=== PATIENT | female | born 1975 | race Caucasian/White ===

== ENCOUNTER 2016-08-22 18:20 | Emergency (ER) | payer BC ==
[~2016-08-22] VITALS: Ht 157.5 cm; Wt 82.5 kg
[2016-08-22 18:24] VITALS: Ht 157.5 cm; Wt 82.5 kg
[2016-08-22] MEDS ORDERED: ACETAMINOPHEN 500 MG TAB PO STA (18:36)
--- NOTE | 2016-08-22 19:14 | ERD ---
ER Documentation Chief Complaint Date/Time DATE: 08/22/16 TIME: 19:08 Chief Complaint ABDOMINAL PAIN, MILD BLEEDING FOR APPROXIMATELY 1 MONTH, UNSURE IF HPI 41 yo female comes in with mid abdominal pain that is described as burning on and off for a few months vaginal pain on and off for the past month she states she had a positive test a few days ago at home with the urine. She describes burning pain is localized in the periumbilical region, she is also had intermittent bleeding on and off for the last 3-4 weeks lasting for about 3 days. She has not had any fevers or chills, she reports nausea but no vomiting. ROS All systems reviewed and are negative except as per history of present illness. Medications Home Meds Active Scripts Ranitidine Hcl* (Zantac*) 150 Mg Tablet, 150 MG PO DAILY Y for EPIGASTRIC PAIN, #30 TAB Prov:TAMIKA OGDEN PA-C 08/22/16 Allergies Allergies: Coded Allergies: No Known Allergy (Unverified , 08/22/16) PMhx/Soc Medical and Surgical Hx: pt denies Surgical Hx History of Surgery: No Anesthesia Reaction: No Hx Neurological Disorder: No Hx Respiratory Disorders: No Hx Cardiac Disorders: No Hx Psychiatric Problems: No Hx Miscellaneous Medical Probl: Yes (anemia, DM, HLD) Hx Alcohol Use: No Hx Substance Use: No Hx Tobacco Use: No Smoking Status: Never smoker Physical Exam Vitals Vital Signs Date Time Temp Pulse Resp B/P Pulse Ox O2 Delivery O2 Flow Rate FiO2 08/22/16 18:24 98.3 96 17 147/80 100 Physical Exam General: Well-developed, well-nourished. The patient appears in no acute distress. HEENT: Head is normocephalic, atraumatic. No scleral icterus. Neck: Supple. Nontender. Lungs: Clear to auscultation. Normal air movement. Heart: Regular rate and rhythm. S1 and S2 are normal. No murmurs, gallops, or rubs. Abdomen: Soft,nontender, no rebound pain, nondistended. Bowel sounds are normoactive. Extremities: No clubbing or cyanosis. Normal pulses. Moving extremities x 4. No weakness. Neurologic: Alert and oriented 3. No focal deficits. Skin: Normal turgor. No rash or lesions. Result Diagram: 7/04/09 [id number]/[id number] Results 24 hrs Laboratory Tests Test 08/22/16 18:51 08/22/16 19:03 Urine Color YELLOW Urine Clarity SLIGHTLY CLOUDY Urine pH 5.0 Urine Specific [place] 1.023 Urine Ketones TRACEmg/dL Urine Nitrite NEGATIVEmg/dL Urine Bilirubin NEGATIVEmg/dL Urine Urobilinogen NEGATIVEmg/dL Urine Leukocyte Esterase NEGATIVELeu/ul Urine Microscopic RBC 2/HPF Urine Microscopic WBC 1/HPF Urine Squamous Epithelial Cells FEW/HPF Urine Hemoglobin 2+mg/dL Urine Glucose 2+mg/dL Urine Total Protein 1+mg/dl White Blood Count 9.210^3/ul Red Blood Count 4.5810^6/ul Hemoglobin 11.8g/dl Hematocrit 36.9% Mean Corpuscular Volume 80.6fl Mean Corpuscular Hemoglobin 25.8pg Mean Corpuscular Hemoglobin Concent 32.0g/dl Red Cell Distribution Width 14.1% Platelet Count 29879^3/UL Mean Platelet Volume 10.4fl Neutrophils % 55.2% Lymphocytes % 35.2% Monocytes % 7.0% Eosinophils % 2.0% Basophils % 0.3% Nucleated Red Blood Cells % 0.0/100WBC Neutrophils # 5.110^3/ul Lymphocytes # 3.310^3/ul Monocytes # 0.710^3/ul Eosinophils # 0.210^3/ul Basophils # 0.010^3/ul Nucleated Red Blood Cells # 0.010^3/ul Sodium Level 139mmol/L Potassium Level 3.3mmol/L Chloride Level 100mmol/L Carbon Dioxide Level 23mmol/L Anion Gap 19 Blood Urea Nitrogen 12mg/dl Creatinine 0.51mg/dl Glucose Level 129mg/dl Calcium Level 10.0mg/dl Total Bilirubin 0.1mg/dl Direct Bilirubin 0.00mg/dl Indirect Bilirubin 0.1mg/dl Aspartate Amino Transf (AST/SGOT) 16IU/L Alanine Aminotransferase (ALT/SGPT) 23IU/L Alkaline Phosphatase 55IU/L Total Protein 7.7g/dl Albumin 4.6g/dl Globulin 3.10g/dl Albumin/Globulin Ratio 1.48 Lipase 104U/L Beta HCG, Quantitative 99457.0mIU/ml Current Medications Medications (Trade) Dose Ordered Sig/Alessandra Route PRN Reason Start Time Stop Time Status Last Admin Dose Admin Acetaminophen (Tylenol Tab) 500 mg ONCE STAT PO 08/22/16 18:36 08/22/16 18:38 DC 08/22/16 19:11 DIAGNOSTIC IMAGING REPORT Patient: PATTI YAN : 1975 Age: 41 Sex: F MR #: [id number] DOS: 08/22/16 1836 Ordering MD: TAMIKA OGDEN PA-C Location: [facility] Room/Bed: PROCEDURE: US OB. CLINICAL INDICATION: Vaginal bleeding. TECHNIQUE: Multiple sonographic images of the pelvis were obtained. Transabdominal and transvaginal views of the pelvis are available for review. The images were reviewed on a PACS workstation. COMPARISON: No prior studies are available for comparison. FINDINGS: A single live intrauterine is identified. heart rate is 157 beats per minute. The crown-rump length is 16.3 mm which corresponds to 8 weeks and 0 days gestational age by ultrasound criteria. Estimated date of delivery is 04/03/2017 by crown rump length. No subchorionic hemorrhage is identified. The ovaries were not visualized. There is no adnexal mass or free fluid. IMPRESSION: 1. Single live intrauterine gestation of approximately 8 weeks 0 days. 2. No subchorionic hemorrhage. 3. Ovaries not identified. RPTAT: HMVK .Paul Dee MD, MD Date Time Electronically viewed and signed by .Paul Dee MD, MD on 08/22/2016 20:12 .K/ CC: TAMIKA OGDEN PA-C Procedures/MDM 41-year-old female comes in with mid abdominal pain as well as vaginal bleeding with a positive test and comes in with a single live intrauterine of 8 weeks 0 days and ultrasound. Abdominal ultrasound showed a , no evidence of adnexal masses. He has been on and off for several months and described as burning, she will be trialed on ranitidine. Type and Rh is positive, no indication for RhoGam. Urine was negative for infection. She was given copies of ultrasound and mammogram and she is to follow-up with OB in 3-4 days. Departure Diagnosis: Primary Impression: First trimester Additional Impression: Abdominal pain Condition: Good TAMIKA OGDEN PA-C Aug 22, 2016 19:14
[2016-08-22 19:16] LABS: ADD UMIC YES; UR ASCORBIC ACID NEGATIVE (NEGATIVE); UR BILIRUBIN (Dip) NEGATIVE (NEGATIVE); UR BLOOD (Dip) 2+ mg/dL (NEGATIVE); UR CLARITY SLIGHTLY CLOUDY (CLEAR); UR COLOR YELLOW (YELLOW); UR GLUCOSE (Dip) 2+ mg/dL (NEGATIVE); UR KETONES (Dip) TRACE mg/dL (NEGATIVE); UR LEUKOCYTE ESTERASE (Dip) NEGATIVE Leu/ul (NEGATIVE); UR NITRITE (Dip) NEGATIVE (NEGATIVE); UR RBC 2 /HPF (0-5); UR SPECIFIC GRAVITY (Dip) 1.023 (1.003-1.030); UR SQUAMOUS EPITHELIAL CELL FEW /HPF (FEW); UR TOTAL PROTEIN (Dip) 1+ mg/dl (NEGATIVE); UR UROBILINOGEN (Dip) NEGATIVE (NEGATIVE)
[2016-08-22 19:26] LABS: BASOPHILS % 0.3 % (0.0-2.0); EOSINOPHILS # 0.2 10^3/ul (0.0-0.5); HEMATOCRIT 36.9 % (37.0-47.0); HEMOGLOBIN 11.8 g/dl (12.0-16.0); LYMPHOCYTES # 3.3 10^3/ul (0.8-2.9); LYMPHOCYTES % 35.2 % (15.0-51.0); MEAN CORPUSCULAR HEMOGLOBIN 25.8 pg (29.0-33.0); MEAN CORPUSCULAR VOLUME 80.6 fl (82.0-101.0); MEAN PLATELET VOLUME 10.4 fl (7.4-10.4); MONOCYTE # 0.7 10^3/ul (0.3-0.9); NEUTROPHIL # 5.1 10^3/ul (1.6-7.5); NEUTROPHILS % 55.2 % (39.0-77.0); PLATELET COUNT 264 10^3/UL (140-415); RED BLOOD COUNT 4.58 10^6/ul (4.20-5.40); RED CELL DISTRIBUTION WIDTH 14.1 % (11.5-14.5); WHITE BLOOD COUNT 9.2 10^3/ul (4.8-10.8)
[2016-08-22 19:27] LABS: ADD SCAN DIFF NO
[2016-08-22 19:56] LABS: ALBUMIN 4.6 g/dl (3.3-4.9); ALBUMIN/GLOBULIN RATIO 1.48; BILIRUBIN,INDIRECT 0.1 mg/dl (0-1.1); BILIRUBIN,TOTAL 0.1 mg/dl (0.2-1.3); CREATININE 0.51 mg/dl (0.44-1.00); POTASSIUM 3.3 mmol/L (3.5-5.1); TOTAL PROTEIN 7.7 g/dl (6.1-8.1)
--- NOTE | 2016-08-22 20:12 | RADRPT ---
PROCEDURE: US OB. CLINICAL INDICATION: Vaginal bleeding. TECHNIQUE: Multiple sonographic images of the pelvis were obtained. Transabdominal and transvagin al views of the pelvis are available for review. The images were reviewed on a PACS workstation. COMPARISON: No prior studies are available for comparison. FINDINGS: A single live intrauterine is identified. heart rate is 157 beats per minute. The cr own-rump length is 16.3 mm which corresponds to 8 weeks and 0 days gestational age by ultrasound cri teria. Estimated date of delivery is 04/03/2017 by crown rump length. No subchorionic hemorrhage i s identified. The ovaries were not visualized. There is no adnexal mass or free fluid. IMPRESSION: 1. Single live intrauterine gestation of approximately 8 weeks 0 days. 2. No subchorionic hemorrhage. 3. Ovaries not identified. RPTAT: HMVK .Paul Dee MD, Date Time Electronically viewed and signed by .Paul Dee MD, MD on 08/22/2016 20:12 .K/
[2016-08-22] MEDS ORDERED: RANI150T9 PO (21:05)
[2016-08-22 21:16] VITALS: BP 134/78; PULSE 82; RESP 17; TEMP 98.3
== END 2016-08-22 21:17 | disposition home or self-care (01) ==
LOC: FTE 18:20
DX: O26.891 Other specified pregnancy related conditions, first trimester (principal); R10.33 Periumbilical pain; O24.111 Pre-existing type 2 diabetes mellitus, in pregnancy, first trimester; E11.9 Type 2 diabetes mellitus without complications; Z3A.08 8 weeks gestation of pregnancy
CPT/HCPCS: 76801; 80053; 81001; 83690; 84702; 85025; 86900; 86901; Z7610; 36415